=== PATIENT | female | born 1985 | race Caucasian/White ===

== ENCOUNTER → 2016-06-26 | Outpatient (REF) | payer BC ==
[2016-06-26 11:36] LABS: BASO % 0.6 % (0.0-1.0); EOS # 0.1 K/mm3 (0.0-0.50); EOS % 1.3 % (0.0-3.0); LARGE UNSTAINED CELL # 0.1 K/mm3 (0.0-0.4); LARGE UNSTAINED CELL % 1.4 % (0.0-4.0); LYMPH # 2.2 K/mm3 (1.5-4.5); LYMPH % 35.1 % (24.0-44.0); MEAN CORPUSCULAR HEMOGLOBIN 29.5 pg (27.0-33.0); MEAN CORPUSCULAR VOLUME 86.8 fl (80.0-96.0); MONO # 0.3 K/mm3 (0.0-0.8); MONO % 4.4 % (0.0-5.0); NEUTROPHILS # 3.6 K/mm3 (1.8-7.7); NEUTROPHILS % 57.3 % (36.0-66.0); PLATELET COUNT, AUTOMATED 215 k/mm3 (150-450); RED CELL DISTRIBUTION WIDTH 11.9 % (11.5-14.5); WHITE BLOOD COUNT 6.2 K/mm3 (4.0-10.0)
[2016-06-26 12:55] LABS: HBsAg Prenatal NEGATIVE (NEGATIVE)
[2016-06-26 13:35] LABS: CONTROL LINE INT CTR LINE PRESENT; HIV SCRN NEGATIVE (NEGATIVE); HIV SCRN1 NEGATIVE (NEGATIVE)
== END ==
LOC: M LABDRAW1 11:05
PROVIDERS: ATTEND Obstetrics & Gynecology
DX: Z34.81 Encounter for supervision of other normal pregnancy, first trimester (principal)

== ENCOUNTER → 2016-07-10 | Day surgery (SDC) | payer BC ==
[~2016-07-10] VITALS: Ht 170.2 cm; Wt 65.8 kg
[~2016-07-10] MED LIST: COLA100C PO; DOXY-278 PO; DOXYCYCLINE HYCLATE 100 MG in D5W MINI-BAG PLUS 100 ML IV ONE; GLYCOPYRROLATE INJ 0.2 MG/ML 2 ML VIAL As Ordered ONE; IBUP600T26 PO; KETOROLAC 60 MG/2 ML VIAL (J1885) As Ordered ONE; LIDOCAINE 2% INJ 100 MG/5 ML SDV (FOR ANES.) As Ordered ONE; LR 1,000 ML IV SCH; METHYLERGONOVINE MALEATE 0.2 MG/ML VIAL (J2210) As Ordered ONE; METOCLOPRAMIDE INJ 10MG/2ML VIAL (J2765) IV PRN; MIDAZOLAM INJ 2 MG/2 ML VIAL (J2250) As Ordered ONE; NO HOME MEDS; ONDANSETRON 4MG/2ML VIAL (J2405) As Ordered ONE; ONDANSETRON 4MG/2ML VIAL (J2405) IV PRN; OXYC1TAB23 PO; PERCOCET 5MG/325MG TAB PO PRN; PROPOFOL 200 MG/20 ML VIAL As Ordered ONE; SILVER NITRATE APPLICATOR As Ordered ONE; dexameTHASONE 4 MG/ML 1ML VIAL (J1100) As Ordered ONE; fentaNYL 100 MCG/2 ML INJECTION (J3010) As Ordered ONE; fentaNYL 100 MCG/2 ML INJECTION (J3010) IV PRN
[2016-07-10 09:07] LABS: MEAN CORPUSCULAR HEMOGLOBIN 30.2 pg (27.0-33.0); MEAN CORPUSCULAR HGB CONC 34.8 g/dl (32.0-36.5); MEAN CORPUSCULAR VOLUME 86.7 fl (80.0-96.0); RED CELL DISTRIBUTION WIDTH 11.9 % (11.5-14.5); WHITE BLOOD COUNT 5.8 K/mm3 (4.0-10.0)
[2016-07-10 11:58] VITALS: BP 109/63
--- NOTE | 2016-07-11 19:49 | RO ---
DATE OF PROCEDURE: 07/10/2016 PREOPERATIVE DIAGNOSES: Missed , intrauterine embryonic demise, first trimester miscarriage at approximately 7 to 8 weeks gestation. POSTPROCEDURE DIAGNOSES: Missed , intrauterine embryonic demise, first trimester miscarriage at approximately 7 to 8 weeks gestation. PROCEDURE PERFORMED: Suction dilatation and curettage. FINDINGS: Uterus sounded to approximately 9 to 10 cm. Intrauterine tissue was grossly consistent with products of conception. SURGEON: Yusuf Zimmerman DO PHYTOPATHOLOGY TEACHER: MENDEL BecerrilIII ANESTHESIA: General via LMA SPECIMENS TO PATHOLOGY: Intrauterine tissue/products of conception. ESTIMATED BLOOD LOSS: 200 mL. Fluids replaced, 700 mL of lactated Ringer's. DRAINS: In-and-out catheter 50 mL urine output. COMPLICATIONS: None. PREOPERATIVE ANTIBIOTIC: Doxycycline 100 mg intravenously times one. Uterotonic administered: Methergine 0.2 mg intramuscularly times one. INDICATION: The patient is a 30-year-old with a recent diagnosis of missed /intrauterine embryonic demise/ first trimester miscarriage approximately 7 to 8 weeks gestation. She was counseled on the available management options, to include expectant medical and surgical. She elected to proceed with surgical management via suction D&C. PROCEDURE: The patient was counseled/consented on the risks, benefits, indications and alternatives of the procedure. Informed consent was obtained. She was taken to the operating room with an IV running, and placed on the operating table in the dorsal supine position. General anesthesia was administered and airway secured without any difficulty. She was placed in the low lithotomy position. She was prepared and draped in the normal sterile fashion. A time-out was performed per protocol. The bladder was drained under sterile conditions with a sterile in-and-out catheter. A sterile speculum was placed with good visualization of the cervix. The anterior lip of the cervix was grasped with a single-toothed tenaculum and downward traction was applied. The uterus was sounded to 10 cm. The cervix was sequentially dilated with Tevin dilators up to #20, size 8 curved Vacurette was placed transcervical into the intrauterine cavity and suction was applied. Multiple passes of the Vacurette were performed until there was minimal blood and tissue return. After minimal blood and tissue return through the Vacurette, the Vacurette was removed. A sharp curette was placed transcervically into the intrauterine cavity and a sharp curettage was performed throughout the entire intrauterine cavity until gritty texture was noted throughout. Minimal tissue return and blood return was noted. An additional pass of the Vacurette was performed with minimal blood and tissue return. The decision was made to conclude the procedure. The single-tooth tenaculum was removed. The tenaculum sites were noted to be hemostatic. Minimal bleeding from the cervical os was noted. All sponge, instrument and needle counts were correct. She was transferred to the postanesthesia care unit in good and stable condition. She tolerated the entire procedure very well. ALISIA
== END | disposition home or self-care (01) ==
LOC: M SDC 08:22
PROVIDERS: ATTEND Obstetrics & Gynecology
DX: O02.1 Missed abortion (principal); G43.909 Migraine, unspecified, not intractable, without status migrainosus
CPT/HCPCS: 36415; 59820; 85027; 86850; 86900; 86901; 88305; J1100; J1885; J2210; J2250; J2405; J3010

== ENCOUNTER 2016-12-18 18:31 | Day surgery (SDC) | payer BC ==
[~2016-12-18] VITALS: Ht 170.2 cm; Wt 63.6 kg
--- NOTE | 2016-12-18 14:04 | REP ---
Clinical: Dating and viability. Technique: Transabdominal first trimester obstetrical ultrasound with color Doppler evaluation Findings: A single intrauterine is appreciated with crown-rump length of 42.3 mm corresponding to 11 weeks 1 day gestational age. No heart activity poor tracing is obtained and findings are suspicious for spontaneous . The placenta has a somewhat prominent and cystic appearance raising the possibility of partial molar . Correlation with HCG levels are recommended. Impression: 1. Intrauterine measuring at 11 weeks 1 day gestational age without heart tracing suggests spontaneous . 2. Prominent and somewhat cystic appearance to the placenta raises the possibility of partial molar . Correlation with HCG levels recommended. Signed by Franky Palmer MD 12/18/2016 01:56 P
[~2016-12-18 18:31] MED LIST changes: -COLA100C PO; +COLA100C5 PO; -DOXYCYCLINE HYCLATE 100 MG in D5W MINI-BAG PLUS 100 ML IV ONE; +DOXYCYCLINE HYCLATE 100 MG in D5W MINI-BAG PLUS 100 ML IV SCH; -GLYCOPYRROLATE INJ 0.2 MG/ML 2 ML VIAL As Ordered ONE; +IBUP-1022 PO; -IBUP600T26 PO; -KETOROLAC 60 MG/2 ML VIAL (J1885) As Ordered ONE; -LIDOCAINE 2% INJ 100 MG/5 ML SDV (FOR ANES.) As Ordered ONE; -LR 1,000 ML IV SCH; -METHYLERGONOVINE MALEATE 0.2 MG/ML VIAL (J2210) As Ordered ONE; -METOCLOPRAMIDE INJ 10MG/2ML VIAL (J2765) IV PRN; -MIDAZOLAM INJ 2 MG/2 ML VIAL (J2250) As Ordered ONE; -ONDANSETRON 4MG/2ML VIAL (J2405) As Ordered ONE; -ONDANSETRON 4MG/2ML VIAL (J2405) IV PRN; -PERCOCET 5MG/325MG TAB PO PRN; -PROPOFOL 200 MG/20 ML VIAL As Ordered ONE; -SILVER NITRATE APPLICATOR As Ordered ONE; -dexameTHASONE 4 MG/ML 1ML VIAL (J1100) As Ordered ONE; -fentaNYL 100 MCG/2 ML INJECTION (J3010) As Ordered ONE; -fentaNYL 100 MCG/2 ML INJECTION (J3010) IV PRN
[2016-12-18] MEDS ORDERED: LR 1,000 ML IV SCH ×3 (19:00→23:30)
[2016-12-18 19:23] LABS: MEAN CORPUSCULAR HEMOGLOBIN 30.6 pg (27.0-33.0); MEAN CORPUSCULAR HGB CONC 35.4 g/dl (32.0-36.5); MEAN CORPUSCULAR VOLUME 86.4 fl (80.0-96.0); RED CELL DISTRIBUTION WIDTH 12.4 % (11.5-14.5); WHITE BLOOD COUNT 11.2 K/mm3 (4.0-10.0)
[2016-12-18] MEDS ORDERED: KETOROLAC 60 MG/2 ML VIAL (J1885) As Ordered ONE (22:18)
[2016-12-18] MEDS ORDERED: LIDOCAINE 2% INJ 100 MG/5 ML SDV (FOR ANES.) As Ordered ONE (22:18)
[2016-12-18] MEDS ORDERED: dexameTHASONE 4 MG/ML 1ML VIAL (J1100) As Ordered ONE (22:18)
[2016-12-18] MEDS ORDERED: MIDAZOLAM INJ 2 MG/2 ML VIAL (J2250) As Ordered ONE (22:18)
[2016-12-18] MEDS ORDERED: PROPOFOL 200 MG/20 ML VIAL As Ordered ONE (22:18)
[2016-12-18] MEDS ORDERED: fentaNYL 100 MCG/2 ML INJECTION (J3010) As Ordered ONE (22:18)
[2016-12-18] MEDS ORDERED: ONDANSETRON 4MG/2ML VIAL (J2405) As Ordered ONE (22:18)
[2016-12-18] MEDS ORDERED: miSOPROStol 200 MCG TAB (S0191) As Ordered ONE (22:30)
[2016-12-18] MEDS ORDERED: METHYLERGONOVINE MALEATE 0.2 MG/ML VIAL (J2210) As Ordered ONE (22:45)
[2016-12-18] MEDS ORDERED: METOCLOPRAMIDE INJ 10MG/2ML VIAL (J2765) IV PRN (23:30)
[2016-12-18] MEDS ORDERED: MEPERIDINE INJ 25 MG/ML VIAL (J2175) IV PRN (23:30)
[2016-12-18] MEDS ORDERED: ACETAMINOPHEN 500 MG TAB PO PRN (23:30)
[2016-12-18] MEDS ORDERED: ONDANSETRON 4MG/2ML VIAL (J2405) IV PRN ×2 (23:30)
[2016-12-18] MEDS ORDERED: PERCOCET 5MG/325MG TAB PO PRN (23:30)
[2016-12-18] MEDS ORDERED: IBUPROFEN 800 MG TAB PO PRN (23:30)
[2016-12-18] MEDS ORDERED: fentaNYL 100 MCG/2 ML INJECTION (J3010) IV PRN (23:30)
[2016-12-18 23:40] VITALS: BP 112/72
[2016-12-19 00:10] VITALS: BP 108/55
[2016-12-19 01:10] VITALS: BP 120/72
--- NOTE | 2016-12-19 11:55 | RO ---
DATE OF PROCEDURE: 12/18/2016 PREPROCEDURE DIAGNOSIS: Missed 11 weeks gestation, possible molar . POSTPROCEDURE DIAGNOSIS: Missed 11 weeks gestation, possible molar . PROCEDURE: Dilation and curettage (D and C). SURGEON: Dr. Manuel Madrid WEED CUTTER: ANESTHESIA: General endotracheal. ESTIMATED BLOOD LOSS: 200 mL. FINDINGS: Moderate amount of products of conception. DESCRIPTION OF PROCEDURE: The patient was taken to the operating room where general anesthesia was induced. She was prepped and draped in a sterile fashion in the dorsal lithotomy position. The anterior lip of the cervix was grasped with a tenaculum. The cervix was dilated with tapered dilators. A #11 mm suction curette was placed through the internal os. The suction device was activated, the curette was gently rotated. Products of conception were noted coming through the suction tubing. Sharp curettage was performed. Moderate uterine atony was encountered. The patient was treated with Methergine 0.2 mg intramuscularly (IM). She also received Cytotec 800 mcg per rectum. Suction curettage was continued. Uterine tone improved, the bleeding stopped. The uterine cavity was deemed to be empty. The products of conception were examined on the table. All instruments were removed. Sponge and instrument counts were correct.
== END 2016-12-19 01:15 | disposition home or self-care (01) ==
LOC: M SDC 18:31 → M PED 23:45 → M SDC 12-19 01:15
PROVIDERS: ATTEND Specialist
DX: O02.1 Missed abortion (principal)
CPT/HCPCS: 36415; 59820; 76801; 85027; 86850; 86900; 86901; 88305; J1100; J1885; J2210; J2250; J2405; J3010

== ENCOUNTER → 2017-01-30 | Outpatient (CLI) | payer BC ==
[~2017-01-30] MED LIST changes: -DOXYCYCLINE HYCLATE 100 MG in D5W MINI-BAG PLUS 100 ML IV SCH
[2017-01-30 09:52] LABS: FREE T4 1.01 NG/DL (0.76-1.46)
[2017-02-01 11:11] LABS: LUTEINIZING HORMONE 7.6 mIU/mL
== END ==
LOC: M LAB 08:40
PROVIDERS: ATTEND Specialist
DX: N96 Recurrent pregnancy loss (principal)

== ENCOUNTER → 2017-08-03 | Outpatient (REF) | payer BC ==
[2017-08-05 00:07] LABS: Lyme Disease IgG/IgM Antibodie <0.91 ISR (0.00-0.90); Lyme Disease IgM Ab Quantitati <0.80 index (0.00-0.79)
== END ==
LOC: M LABDRAW1 11:22
DX: G51.0 Bell's palsy (principal)
CPT/HCPCS: 36415

== ENCOUNTER → 2017-08-04 | Outpatient (REF) | payer BC ==
[2017-08-04 10:09] LABS: BASO # 0.1 10^3/uL (0.0-0.2); BASO % 0.4 % (0.0-1.0); EOS % 0.1 % (0.0-3.0); HEMATOCRIT 37.5 % (36.0-47.0); HEMOGLOBIN 12.9 g/dl (12.0-16.0); IMMATURE GRANULOCYTE % 0.4 % (0-3.0); LYMPH # 3.4 10^3/uL (1.5-4.5); LYMPH % 25.1 % (24.0-44.0); MEAN CORPUSCULAR HEMOGLOBIN 29.9 pg (27.0-33.0); MEAN CORPUSCULAR HGB CONC 34.4 g/dl (32.0-36.5); MEAN CORPUSCULAR VOLUME 86.8 fl (80.0-96.0); MONO # 0.6 10^3/uL (0.0-0.8); MONO % 4.3 % (0.0-5.0); NEUTROPHILS # 9.3 10^3/uL (1.8-7.7); NEUTROPHILS % 69.7 % (36.0-66.0); PLATELET COUNT, AUTOMATED 291 10^3/uL (150-450); RED BLOOD COUNT 4.32 10^6/uL (4.00-5.40); RED CELL DISTRIBUTION WIDTH 12.2 % (11.5-14.5); WHITE BLOOD COUNT 13.4 10^3/uL (4.0-10.0)
[2017-08-04 11:08] LABS: RUBELLA IgG QUALITATIVE IMMUNE (IMMUNE)
[2017-08-04 11:10] LABS: HBsAg Prenatal NEGATIVE (NEGATIVE)
[2017-08-04 11:35] LABS: HEPATITIS C VIRUS ABY INDEX < 0.0 INDEX (<0.8)
[2017-08-04 11:37] LABS: HIV 1&2 SCREEN CENTAUR NEGATIVE (NEGATIVE)
[2017-08-04 11:43] LABS: CHLAMYDIA DNA AMPLIFICATION NEGATIVE (NEGATIVE); GC DNA AMPLIFICATION NEGATIVE (NEGATIVE)
== END ==
LOC: M LABDRAW1 09:54
DX: Z3A.01 Less than 8 weeks gestation of pregnancy (principal); Z34.81 Encounter for supervision of other normal pregnancy, first trimester

== ENCOUNTER → 2017-10-29 | Outpatient (CLI) | payer BC | LOC: M RAD 06:30 | DX: Z34.82 Encounter for supervision of other normal pregnancy, second trimester (principal); Z3A.20 20 weeks gestation of pregnancy | CPT/HCPCS: 76811 ==

== ENCOUNTER → 2017-12-10 | Outpatient (CLI) | payer BC ==
[2017-12-10 09:20] LABS: HEMATOCRIT 36.5 % (36.0-47.0); HEMOGLOBIN 12.7 g/dl (12.0-15.5); MEAN CORPUSCULAR HEMOGLOBIN 30.7 pg (27.0-33.0); MEAN CORPUSCULAR HGB CONC 34.8 g/dl (32.0-36.5); MEAN CORPUSCULAR VOLUME 88.2 fl (80.0-96.0); PLATELET COUNT, AUTOMATED 192 10^3/uL (150-450); RED BLOOD COUNT 4.14 10^6/uL (4.00-5.40); RED CELL DISTRIBUTION WIDTH 12.8 % (11.5-14.5)
[2017-12-13 09:32] LABS: WHITE BLOOD COUNT 7.8 10^3/uL (4.0-10.0)
[2017-12-13 09:32] LABS: GLUCOSE CHALLENGE TEST 1 HOUR 65 MG/DL (LESS THAN 140)
== END ==
LOC: M LAB 07:55
DX: Z34.82 Encounter for supervision of other normal pregnancy, second trimester (principal); Z3A.00 Weeks of gestation of pregnancy not specified
CPT/HCPCS: 82950

== ENCOUNTER → 2017-12-24 | Outpatient (CLI) | payer BC | LOC: M RAD 07:07 | DX: Z34.82 Encounter for supervision of other normal pregnancy, second trimester (principal); Z36.89 Encounter for other specified antenatal screening; Z3A.28 28 weeks gestation of pregnancy | CPT/HCPCS: 76816 ==

== ENCOUNTER 2018-03-18 13:43 | Inpatient (IN) | payer BC ==
[2018-03-18 15:06] LABS: HEMATOCRIT 36.7 % (36.0-47.0); HEMOGLOBIN 13.1 g/dl (12.0-15.5); MEAN CORPUSCULAR HEMOGLOBIN 30.5 pg (27.0-33.0); MEAN CORPUSCULAR HGB CONC 35.7 g/dl (32.0-36.5); MEAN CORPUSCULAR VOLUME 85.3 fl (80.0-96.0); PLATELET COUNT, AUTOMATED 148 10^3/uL (150-450); RED CELL DISTRIBUTION WIDTH 12.6 % (11.5-14.5); WHITE BLOOD COUNT 9.5 10^3/uL (4.0-10.0)
[2018-03-18] MEDS: miSOPROStol 50 MCG 1/2 TAB (S0191) PO ×3 (15:20→23:53)
[2018-03-19] MEDS: LR 1,000 ML IV ×2 (08:37→15:26)
[2018-03-19] MEDS: OXYTOCIN DRIP 30 UNITS in APPROPRIATE DILUENT 1 EA IV (08:43)
[2018-03-19] MEDS: PENICILLIN G POTASSIUM IV 5 MU in D5W MINI-BAG PLUS 100 ML IV (09:11)
[2018-03-19] MEDS: PENICILLIN G POTASSIUM IV 2.5 MU in APPROPRIATE DILUENT 1 EA IV ×3 (13:15→20:57)
[2018-03-19] MEDS ORDERED: FENTANYL 2MCG/ML ROPIVACAINE 0.2% IN 0.9% NACL 200ML IVBAG As Ordered (16:41)
[2018-03-19] MEDS: FENTANYL/ROPIVACAINE/NACL BAG 200 ML EPIDURAL (17:34)
[2018-03-19] MEDS ORDERED: diphenhydrAMINE INJ 50MG/ML VIAL (J1200) IV (18:00)
[2018-03-19] MEDS ORDERED: EPIDURAL/PCA KEYS XX (18:00)
[2018-03-19] MEDS ORDERED: REFRIGERATOR IV KEYS XX (18:00)
[2018-03-19] MEDS ORDERED: NALOXONE INJ 0.4 MG/1 ML VIAL (J2310) IV (18:00)
[2018-03-19] MEDS ORDERED: ONDANSETRON 4MG/2ML VIAL (J2405) IV (18:00)
[2018-03-19] MEDS ORDERED: ePHEDrine SULFATE 25 MG/5 ML(5MG/ML) SYRINGE IV (18:00)
[2018-03-19] MEDS ORDERED: EPIDURAL COMMENT XX (18:00)
[2018-03-19] MEDS: LACTATED RINGER'S 1000 ML IV (18:16)
[2018-03-20] MEDS: PENICILLIN G POTASSIUM IV 2.5 MU in APPROPRIATE DILUENT 1 EA IV (01:35)
[2018-03-20] MEDS: OXYTOCIN DRIP 30 UNITS in APPROPRIATE DILUENT 1 EA IV (03:15)
[2018-03-20] MEDS: LIDOCAINE 1% MDV 20ML VIAL INFIL (03:30)
[2018-03-20] MEDS ORDERED: METHYLERGONOVINE MALEATE 0.2 MG TAB PO (04:00)
[2018-03-20] MEDS ORDERED: MEASLES,MUMPS,RUBELLA VACCINE INJ (MMR-II) (90707) SC (04:00)
[2018-03-20] MEDS ORDERED: ONDANSETRON 4MG/2ML VIAL (J2405) IV (04:00)
[2018-03-20] MEDS ORDERED: DIBUCAINE 1% OINTMENT 30GM TOP (04:00)
[2018-03-20] MEDS ORDERED: RHOGAM 300 MCG (1500 IU) INJ (J2790) IM (04:00)
[2018-03-20] MEDS ORDERED: ACETAMINOPHEN 500 MG TAB PO (04:00)
[2018-03-20] MEDS ORDERED: OXYTOCIN DRIP 30 UNITS in APPROPRIATE DILUENT 1 EA IV (04:45)
[2018-03-20] MEDS: PRENATAL VITAMINS CHEWABLE TABLET PO (09:16)
[2018-03-20] MEDS: IBUPROFEN 800 MG TAB PO ×2 (09:16→17:15)
[2018-03-21] MEDS: PRENATAL VITAMINS CHEWABLE TABLET PO (08:41)
[2018-03-21] MEDS: IBUPROFEN 800 MG TAB PO ×2 (08:46→17:14)
[2018-03-21] MEDS: DOCUSATE SODIUM 100 MG CAP PO (19:51)
[2018-03-22] MEDS: PRENATAL VITAMINS CHEWABLE TABLET PO (07:50)
[2018-03-22] MEDS: IBUPROFEN 800 MG TAB PO (07:52)
== END 2018-03-22 17:25 | disposition home or self-care (01) | DRG 560 ==
LOC: M LDI 13:43 → M OBS 03-20 06:25
PROVIDERS: Specialist
PROC: 3E0DXGC Introduction of Other Therapeutic Substance into Mouth and Pharynx, External Approach (ICD-10-PCS; 2018-03-18)
PROC: 10E0XZZ Delivery of Products of Conception, External Approach (ICD-10-PCS; principal; 2018-03-20)
PROC: 0HQ9XZZ Repair Perineum Skin, External Approach (ICD-10-PCS; 2018-03-20)
DX: O48.0 Post-term pregnancy (principal); Z37.0 Single live birth; Z3A.40 40 weeks gestation of pregnancy; O99.820 Streptococcus B carrier state complicating pregnancy; O70.0 First degree perineal laceration during delivery

== ENCOUNTER 2018-10-26 08:09 | Emergency (ER) | payer BC ==
[~2018-10-26] VITALS: Ht 170.2 cm; Wt 60.7 kg
[~2018-10-26 08:09] MED LIST changes: -DOXY-278 PO; +DOXY-350 PO; +IBUP-1114 PO; +MAPA500T2 PO; +PRENTAB9 PO; +PROBCAP4 PO
[2018-10-26] MEDS ORDERED: PROBCAP14 PO (08:19)
[2018-10-26] MEDS ORDERED: DEBL1TAB PO (08:19)
[2018-10-26] MEDS ORDERED: NS 1,000 ML IV ONE (08:45)
[2018-10-26 08:56] LABS: BASO # 0.1 10^3/uL (0.0-0.2); BASO % 0.7 % (0.0-1.0); EOS # 0.1 10^3/uL (0.0-0.50); HEMATOCRIT 41.9 % (36.0-47.0); HEMOGLOBIN 14.1 g/dl (12.0-15.5); LYMPH # 2.7 10^3/uL (1.5-4.5); LYMPH % 37.5 % (24.0-44.0); MEAN CORPUSCULAR HEMOGLOBIN 30.2 pg (27.0-33.0); MEAN CORPUSCULAR HGB CONC 33.7 g/dl (32.0-36.5); MEAN CORPUSCULAR VOLUME 89.7 fl (80.0-96.0); MONO # 0.4 10^3/uL (0.0-0.8); MONO % 6.1 % (0.0-5.0); NEUTROPHILS # 3.9 10^3/uL (1.8-7.7); NEUTROPHILS % 54.1 % (36.0-66.0); PLATELET COUNT, AUTOMATED 219 10^3/uL (150-450); RED BLOOD COUNT 4.67 10^6/uL (4.00-5.40); WHITE BLOOD COUNT 7.2 10^3/uL (4.0-10.0)
[2018-10-26 09:26] LABS: ALT/SGPT 27 U/L (12-78); BLOOD UREA NITROGEN 17 MG/DL (7-18); CALCIUM LEVEL 8.5 MG/DL (8.5-10.1); CARBON DIOXIDE LEVEL 29 MEQ/L (21-32); CHLORIDE LEVEL 105 MEQ/L (98-107); CREATININE FOR GFR 0.76 MG/DL (0.55-1.30); GLOMERULAR FILTRATION RATE > 60.0 (>60); GLUCOSE, FASTING 101 MG/DL (70-100); POTASSIUM SERUM 3.9 MEQ/L (3.5-5.1); SODIUM LEVEL 139 MEQ/L (136-145)
[2018-10-26 09:27] LABS: ALBUMIN 4.2 GM/DL (3.2-5.2); AMYLASE 67 U/L (25-115); BILIRUBIN,DIRECT 0.2 MG/DL (0.0-0.2); BILIRUBIN,TOTAL 0.7 MG/DL (0.2-1.0); LIPASE 152 U/L (73-393)
[2018-10-26] MEDS ORDERED: ISOVUE-370 76% 100ML VIAL (Q9967) As Ordered ONE (09:39)
[2018-10-26 11:36] VITALS: BP 111/69
--- NOTE | 2018-10-26 11:43 | REP ---
CT ABDOMEN AND PELVIS WITH AND WITHOUT IV CONTRAST: TECHNIQUE: Axial noncontrast images through the abdomen followed by contrast-enhanced images through the abdomen and pelvis using 100 mL Isovue 370 intravenous contrast material, with coronal and sagittal reformations. Visualized lung bases are clear. The liver, spleen, adrenals, pancreas and kidneys are unremarkable. No adrenal or ureteral calculi are seen. No definite gallstones are seen. There is no evidence of biliary dilatation. There is no abdominal aortic aneurysm. There is no adenopathy. There is no free air or free fluid. No definite bowel wall thickening is seen. I cannot identify the appendix but I do not see definite evidence of appendicitis. Urinary bladder is distended with no definite abnormality. There is a mass involving the right ovary which contains fluid density but also a foci of fat and there is an oval calcification in the medial aspect of the mass measuring approximately 13 x 6 mm. This is consistent with a right ovarian dermoid. The left ovary appears unremarkable. IMPRESSION: I cannot identify the appendix. There is no definite evidence of appendicitis. Appendix could be further evaluated possibly with ultrasound, or a CT with good oral preparation as this patient lacks significant intraperitoneal fat and there is resultant crowding of the bowel structures. No renal, ureteral, or bladder calculus. No hydroureteronephrosis. Large right ovarian dermoid is noted, measuring 6.0 x 7.7 x 5.0 cm. No free air or free fluid. Electronically Signed by Waqas Baer MD 10/26/2018 03:39 P
[2018-10-31] MEDS ORDERED: VITA500T PO (12:36)
== END 2018-10-26 11:39 | disposition home or self-care (01) ==
LOC: M ED 08:09
DX: D27.0 Benign neoplasm of right ovary (principal)
CPT/HCPCS: 74178; 80048; 80076; 81001; 82150; 83690; 84702; 85025; 96360; 96361; 99284; Q9967

== ENCOUNTER → 2018-10-28 | Outpatient (REF) | payer BC ==
[~2018-10-28] MED LIST changes: +DEBL1TAB PO; +IBUP1TAB7 PO; +PERCOCET PO; +PROBCAP14 PO; +VITA500T PO
== END ==
LOC: M LABDRAW1 17:37
PROVIDERS: ATTEND Obstetrics & Gynecology
DX: N83.291 Other ovarian cyst, right side (principal)

== ENCOUNTER → 2018-11-01 | Outpatient (CLI) | payer BC ==
--- NOTE | 2018-11-01 08:08 | REP ---
Clinical: Ovarian cyst . Technique: Transabdominal pelvic ultrasound followed by transvaginal examination for better evaluation of the endometrium and adnexa with color Doppler evaluation of the ovaries. Findings: Bladder is unremarkable and measures 9.4 x 4.7 x 4.9 cm . Normal anteverted uterus measures 6.2 x 3.0 x 4.8 cm . The endometrial complex measures 2.6 mm thickness. No discrete uterine or endometrial abnormalities are appreciated. Bilateral ovaries are normal in vascularity without evidence for torsion. Right ovary measures 7.8 x 5.4 x 5.9 cm and includes a 7.6 x 5.4 x 5.2 cm dermoid/teratoma ; R I = 0.55. Left ovary measures 2.5 x 1.8 x 2.4 cm ; R I = 0.59 . No pelvic fluid . Impression: 1. Normal uterus and left ovary. 2. 7.6 cm right ovarian dermoid cyst. Electronically Signed by Franky Palmer MD 11/01/2018 08:00 A
== END ==
LOC: M RAD 07:00
PROVIDERS: ATTEND Obstetrics & Gynecology
DX: N83.291 Other ovarian cyst, right side (principal)

== ENCOUNTER 2018-11-02 10:01 | Day surgery (SDC) | payer BC ==
[~2018-11-02] VITALS: Ht 170.2 cm; Wt 59.0 kg
[~2018-11-02 10:01] MED LIST changes: +ACETAMINOPHEN 1000MG 100ML IV BTL (OFIRMEV) (J0131 PER 10MG) As Ordered ONE; -IBUP1TAB7 PO; +KETOROLAC 60 MG/2 ML VIAL (J1885) As Ordered ONE; +LIDOCAINE 2% INJ 100 MG/5 ML SDV (FOR ANES.) As Ordered ONE; +LR 1,000 ML IV ONE; +METOCLOPRAMIDE INJ 10MG/2ML VIAL (J2765) As Ordered ONE; +MIDAZOLAM INJ 2 MG/2 ML VIAL (J2250) As Ordered ONE; +ONDANSETRON 4MG/2ML VIAL (J2405) As Ordered ONE; -PERCOCET PO; +PROPOFOL 200 MG/20 ML VIAL As Ordered ONE; +ROCURONIUM BROMIDE 50 MG/5 ML VIAL As Ordered ONE; +SUGAMMADEX SODIUM 500 MG/5 ML VIAL (BRIDION) As Ordered ONE; +dexameTHASONE 4 MG/ML 1ML VIAL (J1100) As Ordered ONE; +fentaNYL 100 MCG/2 ML INJECTION (J3010) As Ordered ONE
[2018-11-02] MEDS ORDERED: PROPOFOL 200 MG/20 ML VIAL As Ordered ONE (10:07)
[2018-11-02] MEDS ORDERED: BUPIVACAINE HCL 0.25% 30 ML VIAL As Ordered ONE (10:12)
[2018-11-02] MEDS ORDERED: SILVER NITRATE APPLICATOR As Ordered ONE (10:14)
[2018-11-02 10:19] LABS: HEMATOCRIT 40.9 % (36.0-47.0); HEMOGLOBIN 13.7 g/dl (12.0-15.5); MEAN CORPUSCULAR HEMOGLOBIN 30.4 pg (27.0-33.0); MEAN CORPUSCULAR HGB CONC 33.5 g/dl (32.0-36.5); MEAN CORPUSCULAR VOLUME 90.9 fl (80.0-96.0); PLATELET COUNT, AUTOMATED 211 10^3/uL (150-450); WHITE BLOOD COUNT 5.9 10^3/uL (4.0-10.0)
[2018-11-02 10:47] LABS: HCG, SERUM QUALITATIVE NEGATIVE (NEGATIVE)
[2018-11-02] MEDS ORDERED: fentaNYL 100 MCG/2 ML INJECTION (J3010) As Ordered ONE (12:23)
[2018-11-02] MEDS ORDERED: IBUP1TAB7 PO (13:12)
[2018-11-02] MEDS ORDERED: PERCOCET PO (13:13)
[2018-11-02] MEDS ORDERED: COLA100C5 PO (13:15)
[2018-11-02] MEDS ORDERED: METOCLOPRAMIDE INJ 10MG/2ML VIAL (J2765) IV PRN (13:30)
[2018-11-02] MEDS ORDERED: fentaNYL 100 MCG/2 ML INJECTION (J3010) IV PRN (13:30)
[2018-11-02] MEDS: PERCOCET 5MG/325MG TAB PO PRN ×2 (13:30→14:04)
[2018-11-02] MEDS ORDERED: LR 1,000 ML IV SCH ×2 (13:30)
[2018-11-02] MEDS ORDERED: ONDANSETRON 4MG/2ML VIAL (J2405) IV PRN (13:30)
--- NOTE | 2018-11-02 15:13 | RO ---
DATE OF PROCEDURE: 11/02/2018 PREOPERATIVE DIAGNOSIS: Symptomatic right ovarian cyst (suspect mature cystic teratoma). POSTOPERATIVE DIAGNOSIS: Symptomatic right ovarian cyst (grossly consistent with right mature cystic teratoma). PROCEDURE: Laparoscopic right salpingo-oophorectomy. SURGEON: Yusuf Zimmerman DO RAZOR GRINDER: Manuel Madrid MD (essential role in tissue manipulation and assistance with the excision of the right adnexal mass). ANESTHESIA TYPE: General endotracheal. SPECIMENS SENT TO PATHOLOGY: Right fallopian tube and ovary with the cyst. ESTIMATED BLOOD LOSS: 5 mL. FLUIDS REPLACED: 1500 mL lactated Ringer's. DRAINS: Courtney catheter. URINE OUTPUT: 400 mL. COMPLICATIONS: None. PREOPERATIVE ANTIBIOTICS: None indicated. INTRAOPERATIVE FINDINGS: Right adnexal/ovarian mass (7-8 cm) grossly consistent with mature cystic teratoma. Normal uterus size, shape and contour. Normal left adnexa and ovary. No adhesive disease within the pelvis. INDICATION: Patient is a 32-year-old, (G) 3, para (P) 1-0-2-1. She was recently diagnosed with a right adnexal mass. Imaging findings consistent with mature cystic teratoma. The patient elected to proceed with surgical management. DESCRIPTION OF PROCEDURE: The patient was counseled on the risks, benefits, indications, and alternatives of the procedure. Informed consent was obtained. She was taken to the operating room with an IV running and placed on the operating table in the dorsal supine position. General anesthesia was administered and the airway was secured without any difficulty. She was placed in the low lithotomy position. She was prepared and draped in a normal sterile fashion. A time-out was performed per protocol. Attention was first turned to the pelvis. A Courtney catheter was placed under sterile conditions. A sterile speculum was placed for good visualization of the cervix. The anterior lip of the cervix was grasped with a single-tooth tenaculum and downward traction was applied. The Tevin dilators were used to sequentially dilate the cervix. The uterus sounded to 7 cm. A ZUMI uterine manipulator was placed without any difficulty. The single-tooth tenaculum was removed. The speculum was removed. A sterile glove switch was performed. Attention was turned to the abdomen. 0.25% Marcaine was injected to the umbilicus. A 10 mm umbilical incision was made with the #11 blade. Through this incision a Veress needle was placed into the intraperitoneal cavity. Intraperitoneal placement was confirmed with ease of flow of normal saline, negative return on aspiration and a positive drop test. The opening pressure was 2 mmHg. The abdomen was insufflated with 2 liters of gas. The Veress needle was removed. The size of 11 mm Xcel laparoscopic trocar was placed into the intraperitoneal cavity without any difficulty. No incidental bleeding or injury was noted. The patient was placed in steep Trendelenburg. Two lower abdominal incisions were made, via 5 mm incisions on the right and left lower abdomen. Through these incisions Xcel laparoscopic trocars were placed under direct laparoscopic visualization without any difficulty. Attention was turned to the right adnexal mass. Significant torsion was noted. The mass was twisted upon the infundibulopelvic (IP) ligament three times. The mass was untwisted. The IP ligament was identified. The ureter was well away from the IP ligament. The 5 mm LigaSure device was used to clamp, coagulate and transect the IP ligament. The underlying mesosalpinx/broad ligament was sequentially clamped, coagulated to the level of the utero-ovarian ligament. The utero-ovarian ligament was clamped, coagulated and transected thus amputating both the right fallopian tube and the right ovary with the adnexal mass. This specimen was placed in the anterior cul-de-sac. The specimen was removed using the EndoCatch bag without any difficulty. After removal of the specimen from the abdomen, laparoscopic inspection revealed excellent hemostasis throughout the pelvis. The specimens were sent to pathology for permanent section. The gas was released from the abdomen. The trocars were removed. The skin incisions were closed with #4-0 Monocryl and reinforced with Dermabond. Attention was turned to the vagina. The ZUMI uterine manipulator was removed. The tenaculum sites were noted be hemostatic. Sponge, lap, needle, and instrument counts were correct and all instruments were removed from the vagina per protocol. The patient tolerated the entire procedure very well. She was transferred to the postanesthesia care unit (PACU) in good and stable condition. [facility]ERN[facility] HOSPITALRandal
[2018-11-02 15:43] VITALS: BP 114/61
== END 2018-11-02 15:51 | disposition home or self-care (01) ==
LOC: M SDC 10:01
PROVIDERS: ATTEND Obstetrics & Gynecology
DX: D27.0 Benign neoplasm of right ovary (principal)
CPT/HCPCS: 36415; 58661; 84703; 85027; 86850; 86900; 86901; 88305; J0131; J1100; J1885; J2250; J2405; J2765; J3010

== ENCOUNTER → 2019-03-23 | Outpatient (REF) | payer BC ==
[~2019-03-23] MED LIST changes: -ACETAMINOPHEN 1000MG 100ML IV BTL (OFIRMEV) (J0131 PER 10MG) As Ordered ONE; +IBUP1TAB7 PO; -KETOROLAC 60 MG/2 ML VIAL (J1885) As Ordered ONE; -LIDOCAINE 2% INJ 100 MG/5 ML SDV (FOR ANES.) As Ordered ONE; -LR 1,000 ML IV ONE; -METOCLOPRAMIDE INJ 10MG/2ML VIAL (J2765) As Ordered ONE; -MIDAZOLAM INJ 2 MG/2 ML VIAL (J2250) As Ordered ONE; -ONDANSETRON 4MG/2ML VIAL (J2405) As Ordered ONE; +PERCOCET PO; -PROPOFOL 200 MG/20 ML VIAL As Ordered ONE; -ROCURONIUM BROMIDE 50 MG/5 ML VIAL As Ordered ONE; -SUGAMMADEX SODIUM 500 MG/5 ML VIAL (BRIDION) As Ordered ONE; -dexameTHASONE 4 MG/ML 1ML VIAL (J1100) As Ordered ONE; -fentaNYL 100 MCG/2 ML INJECTION (J3010) As Ordered ONE
[2019-03-29 08:20] LABS: HPV LOW VOL RFLX Negative (Negative)
== END ==
LOC: M LAB REF 13:24
PROVIDERS: ATTEND Advanced Practice Midwife
DX: Z12.4 Encounter for screening for malignant neoplasm of cervix (principal)

== ENCOUNTER → 2019-08-28 | Outpatient (REF) | payer BC | LOC: M PLALAB 07:57 | PROVIDERS: ATTEND Advanced Practice Midwife | DX: Z32.01 Encounter for pregnancy test, result positive (principal) ==

== ENCOUNTER → 2019-08-30 | Outpatient (REF) | payer BC | LOC: M PLALAB 10:46 | PROVIDERS: ATTEND Obstetrics & Gynecology | DX: Z32.01 Encounter for pregnancy test, result positive (principal) ==

== ENCOUNTER → 2019-09-04 | Outpatient (REF) | payer BC | LOC: M SFHCCLAY 14:06 | PROVIDERS: ATTEND Nurse Practitioner Family | DX: O03.9 Complete or unspecified spontaneous abortion without complication (principal) ==

== ENCOUNTER → 2019-11-09 | Outpatient (REF) | payer BC ==
[~2019-11-09] MED LIST changes: +VITA-243 PO; -VITA500T PO
[2019-11-09 10:35] LABS: HEMATOCRIT 39.2 % (36.0-47.0); HEMOGLOBIN 13.3 g/dl (12.0-15.5); MEAN CORPUSCULAR HEMOGLOBIN 29.9 pg (27.0-33.0); MEAN CORPUSCULAR HGB CONC 33.9 g/dl (32.0-36.5); MEAN CORPUSCULAR VOLUME 88.1 fl (80.0-96.0); PLATELET COUNT, AUTOMATED 208 10^3/uL (150-450); RED BLOOD COUNT 4.45 10^6/uL (4.00-5.40)
[2019-11-09 12:16] LABS: CHLAMYDIA DNA AMPLIFICATION NEGATIVE (NEGATIVE); GC DNA AMPLIFICATION NEGATIVE (NEGATIVE)
[2019-11-10 11:08] LABS: HIV 1&2 SCREEN CENTAUR NEGATIVE (NEGATIVE)
== END ==
LOC: M PLALAB 08:53
PROVIDERS: ATTEND Advanced Practice Midwife
DX: O09.521 Supervision of elderly multigravida, first trimester (principal)

== ENCOUNTER → 2020-01-11 | Outpatient (CLI) | payer BC ==
--- NOTE | 2020-01-11 09:15 | REP ---
Clinical: Anatomical evaluation. Comparison: None . Findings: Examination demonstrates a single live intrauterine in transverse (head to maternal left) presentation. motion is identified by technologist. Placenta is noted anterior and grade zero without evidence for placenta previa or abruption. Amniotic fluid volume is normal. Cervix measures 3.6 cm in length and appears closed. No evidence for nuchal cord. Gestational age by LMP 19 weeks 1 day with SANTY 06/05/2020 . Gestational age by current measurements 19 weeks 2 days with SANTY 06/04/2020 . FHR equals 134 beats per minute. BPD 4.5 cm 19 weeks 4 days HC 17.0 cm 19 weeks 5 days AC 13.6 cm 19 weeks 1 day FL 3.1 cm 19 weeks 4 days HL 3.0 cm 19 weeks 5 days HC/AC ratio 1.25 Estimated weight 288 grams ( 56 percentile). Anatomical assessment demonstrates normal structures including cranium, choroid plexus, cavum, cerebellum/posterior fossa, facial features, lungs, four-chamber heart, stomach, cord insertion/three-vessel cord, kidneys/bladder, spine, and extremities. Limited evaluation of the left cardiac ventricular outflow tract and diaphragm due to positioning. Impression: Single live intrauterine in transverse lie demonstrating appropriate interval growth. Anatomical limitations as noted above. No gross abnormalities are identified. Electronically Signed by Franky Palmer MD 01/11/2020 09:07 A
== END ==
LOC: M WHC 08:01
PROVIDERS: ATTEND Advanced Practice Midwife
DX: Z34.82 Encounter for supervision of other normal pregnancy, second trimester (principal); Z3A.19 19 weeks gestation of pregnancy

== ENCOUNTER → 2020-02-15 | Outpatient (CLI) | payer BC ==
--- NOTE | 2020-02-22 16:17 | REP ---
FOLLOW-UP OBSTETRICAL ULTRASOUND CLINICAL: Anatomical follow-up evaluation. TECHNIQUE: Transabdominal obstetrical ultrasound with color Doppler evaluation. COMPARISON: 01/11/2020. FINDINGS: Ultrasound examination demonstrates a single live intrauterine in transverse lie with head to maternal left. motion was identified by the technologist. Cervix measures 4.6 cm in length and appears closed. Amniotic fluid volume is normal. Placenta identified anteriorly, grade 0, and without placenta previa or abruption. Placenta measures 3 cm from the closed internal os. heart rate equals 135 beats per minute. Gestational age by current biometrical measurements 24 weeks 5 days. Estimated weight 689 grams (52nd percentile). Anatomical assessment demonstrates normal diaphragm, four chamber heart, and cardiac ventricular outflow tracts. IMPRESSION: 1. Single live intrauterine pregnancies in transverse lie demonstrating appropriate interval growth. 2. In conjunction with prior examination, anatomical assessment is complete and normal. No gross abnormalities are identified. MTDD
== END ==
LOC: M WHC 07:54
PROVIDERS: ATTEND Advanced Practice Midwife
DX: Z34.82 Encounter for supervision of other normal pregnancy, second trimester (principal)

== ENCOUNTER → 2020-03-08 | Outpatient (CLI) | payer BC ==
[2020-03-08 13:34] LABS: BASO % 0.2 % (0.0-1.0); EOS % 0.3 % (0.0-3.0); HEMATOCRIT 40.1 % (36.0-47.0); HEMOGLOBIN 13.4 g/dl (12.0-15.5); LYMPH % 22.2 % (24.0-44.0); MEAN CORPUSCULAR HEMOGLOBIN 30.7 pg (27.0-33.0); MEAN CORPUSCULAR HGB CONC 33.4 g/dl (32.0-36.5); MEAN CORPUSCULAR VOLUME 91.8 fl (80.0-96.0); MONO # 0.5 10^3/uL (0.0-0.8); NEUTROPHILS # 6.4 10^3/uL (1.5-8.5); PLATELET COUNT, AUTOMATED 189 10^3/uL (150-450); RED BLOOD COUNT 4.37 10^6/uL (4.00-5.40); WHITE BLOOD COUNT 9.1 10^3/uL (4.0-10.0)
== END ==
LOC: M PLALAB 08:26
PROVIDERS: ATTEND Advanced Practice Midwife
DX: Z34.82 Encounter for supervision of other normal pregnancy, second trimester (principal); Z3A.00 Weeks of gestation of pregnancy not specified

== ENCOUNTER → 2020-05-10 | Outpatient (REF) | payer BC | LOC: M SFHCWAGY 16:54 | PROVIDERS: ATTEND Advanced Practice Midwife | DX: O09.529 Supervision of elderly multigravida, unspecified trimester (principal); Z3A.00 Weeks of gestation of pregnancy not specified ==

== ENCOUNTER 2020-06-05 10:06 | Inpatient (IN) | payer BC ==
[~2020-06-05] VITALS: Ht 170.2 cm; Wt 77.7 kg
[2020-06-05 10:34] VITALS: BP 104/73
[2020-06-05] MEDS: miSOPROStol 50 MCG 1/2 TAB (S0191) PO SCH ×3 (11:30→19:36)
--- NOTE | 2020-06-05 11:31 | HPE ---
HISTORY AND PHYSICAL DATE OF ADMISSION: 06/05/2020 HISTORY OF PRESENT ILLNESS: Sejal is a 34-year-old 5 para 1-0-3-1 at 40 weeks gestation, EDC of 06/05/20 by first trimester ultrasound, presents to Labor and Delivery today for elective induction due to advanced maternal age for consult with Dr. Manuel Madrid. She denies any regular painful contractions, vaginal bleeding or leakage of fluid. The fetus has been active. Her care was initiated at [facility] in the first trimester. course complicated by advanced maternal age. OBSTETRIC HISTORY: June 2016: Spontaneous miscarriage, D and C; November 2016 spontaneous miscarriage, D and C; February 2018, 40 weeks and 4/7 days, 8 pound male, spontaneous vaginal delivery following induction of labor; August 2019 spontaneous miscarriage. OBSTETRIC LABS: A positive, antibody screen negative, syphilis negative, gonorrhea and chlamydia and negative. Hepatitis B surface antigen negative. Hepatitis C antibody negative. HIV negative. Rubella immune. Gestational diabetic screening normal at 63. Urine culture: No growth. Group B Strep negative. PAST MEDICAL HISTORY: Childhood varicella. PAST SURGICAL HISTORY: D and C's x2, wisdom tooth extraction, dermoid cyst on the right ovary and bilateral Lasix surgery. FAMILY HISTORY: Heart disease and breast cancer. SOCIAL HISTORY: The patient is . She is a nonsmoker. She denies alcohol and drug use. Denies a history of sexually transmitted infections. Denies history of abuse, physical, sexual and emotional. She is employed as a dental hygienist. MEDICATIONS: 1. vitamin. ALLERGIES: No known drug allergies. OBJECTIVE: VITAL SIGNS: Temperature 96, pulse 105, respirations 18, BP 104/73. GENERAL: She is alert and oriented x3. heart rate is 140 with moderate variability, positive accelerations, negative decelerations. There is no pattern of regular contractions. ABDOMEN: Her abdomen is gravid, cephalic presentation. Estimated weight is 8 pounds. GENITALIA: Sterile vaginal exam: 2 cm dilated, 50% effaced, -3 station, posterior, moderate texture, no show with the exam. ASSESSMENT: Intrauterine at 40 weeks, heart Category 1, advanced maternal age. PLAN: Admit patient to Labor and Delivery, routine labs, out of bed ad eryn, regular diet, at this time saline lock for IV access. I plan to start Misoprostol 50 mcg p.o. q. 4 hours for cervical ripening, may consider Cook catheter Courtney, IV Pitocin and AROM for labor induction augmentation. The risks, benefits and alternatives have been reviewed with the patient. She and her have had all of their questions answered. She has been verbally consented for emergency surgery and blood products if they are necessary. I do anticipate cervical ripening.
[2020-06-05 11:44] LABS: HEMATOCRIT 39.5 % (36.0-47.0); HEMOGLOBIN 13.1 g/dl (12.0-15.5); MEAN CORPUSCULAR HEMOGLOBIN 28.9 pg (27.0-33.0); MEAN CORPUSCULAR HGB CONC 33.2 g/dl (32.0-36.5); MEAN CORPUSCULAR VOLUME 87.2 fl (80.0-96.0); PLATELET COUNT, AUTOMATED 180 10^3/uL (150-450); RED BLOOD COUNT 4.53 10^6/uL (4.00-5.40); WHITE BLOOD COUNT 9.1 10^3/uL (4.0-10.0)
[2020-06-05 12:12] VITALS: BP 111/68
[2020-06-05 13:39] VITALS: BP 123/79
[2020-06-05 15:33] VITALS: BP 119/67
[2020-06-05] MEDS ORDERED: OXYTOCIN DRIP 30 UNITS in IV 1 EA IV SCH (20:00)
[2020-06-06] VITALS (32 sets, daily range): BP systolic 91–128; BP diastolic 50–84
--- NOTE | 2020-06-06 10:10 | IPNPDOC ---
Text Note Date of Service The patient was seen on 06/06/20. NOTE Intrapartum Note Sejal is a 34yo with SIUP at 39wk undergoing IOL for AMA. She had IOL started with cytotec and pitocin was started last night. She is painfully contra cting and breathing through them. Vitals wnl, afebrile Cat I FHRT with +accels, -decels, mod jessica Currie: ctx q2min SCE: 350/-2, AROM performed with clear fluid noted, tolerated well Plan: Continue to titrate pitocin per protocol IV pain meds (stadol 2mg q4hr and IV phenergan 12.5mg 1x in latent labor if desired), candidate for epidural in active labor Continue to closely monitor Safe to proceed Kaylie Raymundo MD VS,Jaki, I+O VS, Jaki I+O Laboratory Tests 06/05/20 11:21 Vital Signs Date Time Temp Pulse Resp B/P (MAP) Pulse Ox O2 Delivery O2 Flow Rate FiO2 06/06/20 09:22 80 18 110/76 (87) 06/06/20 07:10 97.9 Kaylie Raymundo MD Jun 06, 2020 10:10
[2020-06-06] MEDS: LR 1,000 ML IV SCH ×2 (10:43→15:20)
[2020-06-06] MEDS ORDERED: FENTANYL 2MCG/ML ROPIVACAINE 0.2% IN 0.9% NACL 100ML IVBAG As Ordered ONE (11:45)
[2020-06-06] MEDS ORDERED: NALOXONE INJ 0.4MG/1ML VIAL (J2310 PER 1MG) IV PRN (13:45)
[2020-06-06] MEDS ORDERED: ePHEDrine SULFATE 25 MG/5 ML(5MG/ML) SYRINGE IV PRN (13:45)
[2020-06-06] MEDS ORDERED: LACTATED RINGER'S 1000 ML IV PRN (13:45)
[2020-06-06] MEDS ORDERED: EPIDURAL/PCA KEYS XX PRN (13:45)
[2020-06-06] MEDS ORDERED: REFRIGERATOR IV KEYS XX PRN (13:45)
[2020-06-06] MEDS ORDERED: diphenhydrAMINE 50MG/ML VIAL (J1200) IV PRN (13:45)
[2020-06-06] MEDS ORDERED: ONDANSETRON 4MG/2ML VIAL IV PRN (13:45)
[2020-06-06] MEDS ORDERED: EPIDURAL COMMENT XX SCH (13:45)
[2020-06-06] MEDS ORDERED: FENTANYL/ROPIVACAINE/NACL BAG 100 ML EPIDURAL SCH (13:45)
[2020-06-06 16:17] LABS: CORD GAS ABE A -9.5; CORD GAS ABE V -3.6; CORD GAS HCO3 A 23.2 MEQ/L; CORD GAS HCO3 V 22.7 MEQ/L; CORD GAS O2 SAT A 29.4 %; CORD GAS O2 SAT V 71.4 %; CORD GAS PCO2 A 85.2 mmHg; CORD GAS PCO2 V 45.2 mmHg; CORD GAS PH A 7.053 UNITS; CORD GAS PH V 7.319 UNITS; CORD GAS PO2 V 31.3 mmHg; CORD GAS SBC A 15.6 MEQ/L; CORD GAS SBC V 20.8 MEQ/L; CORD GAS TCO2 A 25.8 MEQ/L; CORD GAS TCO2 V 24.1 MEQ/L
[2020-06-06] MEDS ORDERED: OXYTOCIN DRIP 30 UNITS in IV 1 EA IV SCH (16:32)
[2020-06-06] MEDS ORDERED: ACETAMINOPHEN 500 MG TAB PO PRN (16:45)
[2020-06-06] MEDS ORDERED: RHOGAM 300 MCG (1500 IU) INJ (J2790) IM SCH (16:45)
[2020-06-06] MEDS ORDERED: ACETAMINOPHEN TAB 650MG DOSE (2X325MG) PO PRN (16:45)
[2020-06-06] MEDS ORDERED: IBUPROFEN 800 MG TAB PO PRN (16:45)
[2020-06-06] MEDS ORDERED: DOCUSATE SODIUM 100MG CAPSULE PO PRN (16:45)
[2020-06-06] MEDS ORDERED: MEASLES,MUMPS,RUBELLA VACCINE INJ (MMR-II) (90707) SC SCH (16:45)
--- NOTE | 2020-06-06 17:55 | DNPDOC ---
[facility] Delivery Note Delivery Note DATE OF DELIVERY: 06/06/2020 PREDELIVERY DIAGNOSIS: 40w1d gestation, induction of labor for AMA POST DELIVERY DIAGNOSIS: Delivered. PROCEDURE: Spontaneous vaginal delivery LOIN TRIMMER: Dr. Kaylie Raymundo MD ANESTHESIA: epidural ESTIMATED BLOOD LOSS: 200 mL. FINDINGS: 8 pound 3 ounce (3720g) male , Score 5/9, nuchal cord times 2 DELIVERY SUMMARY: Sejal is a 34yo [id number] s/p uncomplicated at 40w1d after undergoing IOL for AMA, delivering at 1604 on 06/06. She had IOL started with cytotec and then received pitocin IV. She had AROM, clear and then received an epidural when hadley painfully. She had a FHR decel noted on the monitor, so I went into the room to check her. Bladder castillo bulb was in front of head, so deflated and pushed up behind the head. She had an anterior lip originally, which I pushed back and asked the patient to push down through. With movement of pt onto her side, fetus descended and patient was able to push to delivery of head with just a few sets of pushes. head delivered ESDRAS, two loose nuchal cords reduced. Right anterior shoulder delivered followed by posterior shoulder and corpus. Infant placed on maternal abdomen and initially stunned. Nose and mouth suctioned with bulb suction. Cord clamped x2 and cut, taken to warmer where he then became vigorous- apgars 5/9. Cord gases collected: pHa 7.053 BE -9.5 and pHv 7.319 BE -3.6. With fundal massage and traction on the cord, placenta delivered spontaneously and intact with 3 vessel centrally inserted cord. More uterine massage performed, IV pitocin bolus given, and fundus firmed to u-2cm. Hemostasis noted. Inspection of perineum and vagina revealed small jennyfer at the introitus, 1mll, repaired with 2 figure of 8's using 3-0 vicryl suture with complete reapproximation and hemostasis. All counts correct x2. Mom and infant were doing well when I left the room. MD Zackary Morgan Katrina D MD Jun 06, 2020 17:55
[2020-06-07] MEDS: IBUPROFEN 600MG TAB PO PRN ×3 (01:17→18:40)
[2020-06-07 06:04] VITALS: BP 109/61
--- NOTE | 2020-06-07 07:00 | IPNPDOC ---
Progress Note Date of Service: Jun 07, 2020 Day#: 1 Progress Note PPD 1 SUBJECT: Sejal is a 34yo s/p uncomplicated at 1604 on 06/06 after undergoing IOL at 40w1d for AMA. She is doing well day # 1. She has been ambulating, voiding spontaneously without issue and tolerating regular diet. Breast feeding and formula supplementing without issue. Reports lochia is like a normal period, tapering. No f/c/n/v/CP/SOB. OBJECTIVE: VITAL SIGNS: Within normal limits, afebrile. Alert and oriented times three. Abdomen: Fundus firm at U-2. Soft, NTTP. Extremities: no pain with palpation of calves ASSESSMENT: Sejal is a 34yo s/p uncomplicated at 1604 on 06/06 after undergoing IOL at 40w1d for AMA. She is doing well day # 1. She is doing well day # 1. Vitals within normal limits, afebrile, hemodynamically stable with no evidence of infection. PLAN: 1. Discharge to home today. 2. Tylenol and Motrin for pain. 3. Encourage breast feeding and ambulation. 4. Desires Minipill for contraception 5. Routine PP visit in 6 weeks in clinic. 6. Discussed return precautions at length. Kaylie Raymundo MD VS, I&O, 24H, Jaki Vital Signs/I&O Vital Signs Date Time Temp Pulse Resp B/P (MAP) Pulse Ox O2 Delivery O2 Flow Rate FiO2 06/07/20 06:04 98.4 81 18 109/61 (77) I&O- Last 24 Hours up to 6 AM 06/07/20 06:00 Intake Total 3282 ml Output Total 2225 ml Balance 1057 ml Laboratory Data 24H LABS Laboratory Tests 2 06/06/20 16:12: Cord Arterial Blood pH 7.053, Cord Arterial Blood PCO2 85.2, Cord Arterial Blood PO2 20.0, Cord Arterial Blood HCO3 23.2, Cord Arterial Blood Total CO2 25.8, Cord Arterial Blood Base Excess -9.5, Cord Arterial Base Excess (Standard 15.6, Cord Arterial Bld Oxygen Saturation 29.4, Cord Venous Blood pH 7.319, Cord Venous Blood PCO2 45.2, Cord Venous Blood PO2 31.3, Cord Venous Blood HCO3 22.7, Cord Venous Blood Total CO2 24.1, Cord Venous Base Excess (Actual) -3.6, Cord Venous Base Excess (Standard) 20.8, Cord Venous Blood Oxygen Saturation 71.4 Kaylie Raymundo MD Jun 07, 2020 07:00
[2020-06-07] MEDS ORDERED: DOK1CAP7 PO (07:02)
[2020-06-07] MEDS ORDERED: IBUP80TA PO (07:02)
--- NOTE | 2020-06-07 07:07 | DS.PDOC ---
Discharge Summary General Date of Admission Jun 05, 2020 at 10:06 Date of Discharge Jun 07, 2020 Discharge Summary PROCEDURES PERFORMED DURING STAY: spontaneous vaginal delivery ADMITTING DIAGNOSES: 1. IOL AMA DISCHARGE DIAGNOSES: 1. IOL AMA, delivered COMPLICATIONS/CHIEF COMPLAINT: Induction. HISTORY OF PRESENT ILLNESS/HOSPITAL COURSE: Sejal is a 34yo s/p uncomplicated at 1604 on 06/06 after undergoing IOL at 40w1d for AMA. She is doing well day # 1. She is doing well day # 1. Vitals within normal limits, afebrile, hemodynamically stable with no evidence of infection. DISCHARGE MEDICATIONS: Please see below. ALLERGIES: Please see below. PHYSICAL EXAMINATION ON DISCHARGE: VITAL SIGNS: Within normal limits, afebrile. Alert and oriented times three. Abdomen: Fundus firm at U-2. Soft, NTTP. Extremities: no pain with palpation of calves LABORATORY DATA: Please see below. ACTIVITY: As tolerated, vaginal rest 6 weeks DIET: regular DISPOSITION: home DISCHARGE PLAN/INSTRUCTIONS: 1. Discharge to home today. 2. Tylenol and Motrin for pain. 3. Encourage breast feeding and ambulation. 4. Desires Minipill for contraception 5. Routine PP visit in 6 weeks in clinic. 6. Discussed return precautions at length. DISCHARGE CONDITION: Stable TIME SPENT ON DISCHARGE: Greater than 20 minutes. Kaylie Raymundo MD Vital Signs/I&Os Vital Signs Date Time Temp Pulse Resp B/P (MAP) Pulse Ox O2 Delivery O2 Flow Rate FiO2 06/07/20 06:04 98.4 81 18 109/61 (77) I&O- Last 24 Hours up to 6 AM 06/07/20 06:00 Intake Total 3282 ml Output Total 2225 ml Balance 1057 ml Laboratory Data Labs 24H Laboratory Tests 2 06/06/20 16:12: Cord Arterial Blood pH 7.053, Cord Arterial Blood PCO2 85.2, Cord Arterial Blood PO2 20.0, Cord Arterial Blood HCO3 23.2, Cord Arterial Blood Total CO2 25.8, Cord Arterial Blood Base Excess -9.5, Cord Arterial Base Excess (Standard 15.6, Cord Arterial Bld Oxygen Saturation 29.4, Cord Venous Blood pH 7.319, Cord Venous Blood PCO2 45.2, Cord Venous Blood PO2 31.3, Cord Venous Blood HCO3 22.7, Cord Venous Blood Total CO2 24.1, Cord Venous Base Excess (Actual) -3.6, Cord Venous Base Excess (Standard) 20.8, Cord Venous Blood Oxygen Saturation 71.4 Discharge Medications Scheduled Ascorbic Acid (Vitamin C) 500 Mg Tablet, 2 TAB PO DAILY, (Reported) No.137/Iron/Folic Acd ( Vitamin Tablet) 1 Tab Tab, 1 TAB PO DAILY, (Reported) Scheduled PRN Docusate Sodium (Dok) 100 Mg Capsule, 100 MG PO QHSP PRN for CONSTIPATION Ibuprofen (Ibuprofen) 800 Mg Tablet, 800 MG PO Q8HP PRN for PAIN LEVEL 6-10 Allergies Coded Allergies: No Known Allergies (Unverified , 10/31/18) Kaylie Raymundo MD Jun 07, 2020 07:07
[2020-06-07] MEDS: BENZOCAINE 20% HEMORRHOIDAL OINTMENT 28GM TUBE TOP PRN ×2 (07:41→18:40)
[2020-06-07] MEDS ORDERED: PRENATAL VITAMINS CHEWABLE TABLET PO SCH (09:00)
[2020-06-07 18:00] VITALS: BP 122/77
== END 2020-06-07 18:50 | disposition home or self-care (01) | DRG 560 ==
LOC: M LDI 10:06 → M OBS 06-06 18:30
PROVIDERS: ADMIT Advanced Practice Midwife; ATTEND Obstetrics & Gynecology
PROC: 3E0P7GC Introduction of Other Therapeutic Substance into Female Reproductive, Via Natural or Artificial Opening (ICD-10-PCS; 2020-06-05)
PROC: 10E0XZZ Delivery of Products of Conception, External Approach (ICD-10-PCS; principal; 2020-06-06)
PROC: 0HQ9XZZ Repair Perineum Skin, External Approach (ICD-10-PCS; 2020-06-06)
PROC: 10907ZC Drainage of Amniotic Fluid, Therapeutic from Products of Conception, Via Natural or Artificial Opening (ICD-10-PCS; 2020-06-06)
DX: O69.81X0 Labor and delivery complicated by cord around neck, without compression, not applicable or unspecified (principal); O70.0 First degree perineal laceration during delivery; Z3A.40 40 weeks gestation of pregnancy; Z37.0 Single live birth

== ENCOUNTER → 2020-11-14 | Outpatient (REF) | payer OTHER, BC ==
[~2020-11-14] MED LIST changes: +DOK1CAP7 PO; +IBUP80TA PO
== END ==
LOC: M SFHCWAGY 10:07
PROVIDERS: ATTEND Advanced Practice Midwife
DX: Z12.4 Encounter for screening for malignant neoplasm of cervix (principal)
CPT/HCPCS: 87624; G0123

== ENCOUNTER → 2020-12-20 | Outpatient (CLI) | payer BC, OTHER ==
[2020-12-20 11:00] LABS: ALBUMIN 3.9 GM/DL (3.2-5.2); ALT/SGPT 22 U/L (12-78); BILIRUBIN,TOTAL 0.6 MG/DL (0.2-1.0); BLOOD UREA NITROGEN 21 MG/DL (7-18); CALCIUM LEVEL 8.7 MG/DL (8.5-10.1); CARBON DIOXIDE LEVEL 30 MEQ/L (21-32); CHLORIDE LEVEL 106 MEQ/L (98-107); CHOLESTEROL LEVEL 151 MG/DL (<200); CHOLESTEROL RISK RATIO 2.253 (<5); CREATININE FOR GFR 0.77 MG/DL (0.55-1.30); GLOMERULAR FILTRATION RATE > 60.0 (>60); GLUCOSE, FASTING 79 MG/DL (70-100); HDL CHOLESTEROL 67 MG/DL (>40); LDL CHOLESTEROL 78 MG/DL (<100); NON-HDL-C 84 MG/DL; POTASSIUM SERUM 4.5 MEQ/L (3.5-5.1); SODIUM LEVEL 138 MEQ/L (136-145); TRIGLYCERIDES LEVEL 32 MG/DL (<150)
== END ==
LOC: M WUC 08:09
PROVIDERS: ATTEND Nurse Practitioner Family
DX: Z00.00 Encounter for general adult medical examination without abnormal findings (principal)

== ENCOUNTER → 2021-11-21 | Outpatient (CLI) | payer OTHER ==
[~2021-11-21] MED LIST changes: +DOK1CAP4 PO; -DOK1CAP7 PO
== END ==
LOC: M WHC 11:28
PROVIDERS: ATTEND Advanced Practice Midwife
DX: Z12.31 Encounter for screening mammogram for malignant neoplasm of breast (principal)

== ENCOUNTER → 2021-11-21 | Outpatient (CLI) | payer OTHER ==
[2021-11-21 11:51] LABS: ALT/SGPT 19 U/L (12-78); BILIRUBIN,TOTAL 0.5 MG/DL (0.2-1.0); BLOOD UREA NITROGEN 18 MG/DL (7-18); CALCIUM LEVEL 8.6 MG/DL (8.5-10.1); CARBON DIOXIDE LEVEL 30 MEQ/L (21-32); CHLORIDE LEVEL 105 MEQ/L (98-107); CHOLESTEROL LEVEL 150 MG/DL (<200); CHOLESTEROL RISK RATIO 2.142 (<5); CREATININE FOR GFR 0.72 MG/DL (0.55-1.30); GLOMERULAR FILTRATION RATE > 60.0 (>60); GLUCOSE, FASTING 80 MG/DL (70-100); HDL CHOLESTEROL 70 MG/DL (>40); LDL CHOLESTEROL 71 MG/DL (<100); NON-HDL-C 80 MG/DL; POTASSIUM SERUM 4.4 MEQ/L (3.5-5.1); SODIUM LEVEL 140 MEQ/L (136-145); TRIGLYCERIDES LEVEL 47 MG/DL (<150)
== END ==
LOC: M PLALAB 08:28
PROVIDERS: ATTEND Nurse Practitioner Family
DX: Z00.00 Encounter for general adult medical examination without abnormal findings (principal)

== ENCOUNTER → 2022-01-16 | Outpatient (REF) | payer OTHER | LOC: M SFHCWAGY 10:15 | PROVIDERS: ATTEND Advanced Practice Midwife | DX: R10.2 Pelvic and perineal pain (principal) ==

== ENCOUNTER → 2022-01-16 | Outpatient (REF) | payer OTHER | LOC: M PLALAB 11:33 | PROVIDERS: ATTEND Advanced Practice Midwife | DX: R10.2 Pelvic and perineal pain (principal) ==

== ENCOUNTER → 2022-10-22 | Outpatient (CLI) | payer OTHER ==
[~2022-10-22] MED LIST changes: -DOXY-350 PO; +DOXY-444 PO
[2022-10-22 11:36] LABS: BASO % 0.5 % (0.0-1.0); EOS # 0.1 10^3/uL (0.0-0.5); EOS % 0.8 % (0.0-3.0); HEMATOCRIT 43.9 % (36.0-47.0); LYMPH # 2.7 10^3/uL (1.5-5.0); LYMPH % 44.7 % (24.0-44.0); MEAN CORPUSCULAR HEMOGLOBIN 29.4 pg (27.0-33.0); MEAN CORPUSCULAR HGB CONC 31.9 g/dl (32.0-36.5); MONO # 0.4 10^3/uL (0.0-0.8); MONO % 6.3 % (2.0-8.0); NEUTROPHILS # 2.9 10^3/uL (1.5-8.5); NEUTROPHILS % 47.5 % (36.0-66.0); PLATELET COUNT, AUTOMATED 220 10^3/uL (150-450); RED BLOOD COUNT 4.77 10^6/uL (4.00-5.40); WHITE BLOOD COUNT 6.1 10^3/uL (4.0-10.0)
[2022-10-22 11:48] LABS: ERYTHROCYTE SEDIMENTATION RATE 6 mm/hr (0-20)
[2022-10-22 12:07] LABS: ALBUMIN 4.4 G/DL (3.2-5.2); ALKALINE PHOSPHATASE 40 U/L (46-116); ALT/SGPT 15 U/L (7.0-40); AST/SGOT 17 U/L (<34); BILIRUBIN,TOTAL 0.7 MG/DL (0.3-1.2); BLOOD UREA NITROGEN 11 MG/DL (9-23); C REACTIVE PROTEIN QUANTITATIV < 0.40 MG/DL (<1.0); CALCIUM LEVEL 9.2 MG/DL (8.5-10.1); CARBON DIOXIDE LEVEL 28 MMOL/L (20-31); CHLORIDE LEVEL 105 MMOL/L (98-107); CREATININE FOR GFR 0.73 MG/DL (0.55-1.30); GLOMERULAR FILTRATION RATE > 60.0 (>60); GLUCOSE, FASTING 81 MG/DL (60-100); POTASSIUM SERUM 4.5 MMOL/L (3.5-5.1); SODIUM LEVEL 138 MMOL/L (136-145); TOTAL PROTEIN 7.2 G/DL (5.7-8.2)
[2022-10-22 12:08] LABS: FREE T3 3.3 PG/ML (2.3-4.2); RHEUMATOID FACTOR QUANT < 3.5 IU/ML (<14)
[2022-10-22 12:09] LABS: FREE T4 1.24 NG/DL (0.89-1.76); THYROID STIMULATING HORMONE 1.454 uIU/ML (0.55-4.78)
[2022-10-22 12:11] LABS: THYROID PEROXIDASE ANTIBODY < 28.0 U/ML (<60.0)
[2022-10-23 14:09] LABS: ANTINUCLEAR ANTIBODIES DIRECT Negative (Negative); SJOGREN'S ANTI SS-A <0.2 AI (0.0-0.9); SJOGREN'S ANTI SS-B <0.2 AI (0.0-0.9)
== END ==
LOC: M PLALAB 08:44
PROVIDERS: ATTEND Nurse Practitioner Family
DX: R59.0 Localized enlarged lymph nodes (principal)

== ENCOUNTER → 2022-11-26 | Outpatient (CLI) | payer OTHER ==
[2022-11-26 12:25] LABS: ALBUMIN 4.2 G/DL (3.2-5.2); ALKALINE PHOSPHATASE 43 U/L (46-116); ALT/SGPT 15 U/L (7.0-40); AST/SGOT 12 U/L (<34); BILIRUBIN,TOTAL 0.7 MG/DL (0.3-1.2); BLOOD UREA NITROGEN 13 MG/DL (9-23); CARBON DIOXIDE LEVEL 28 MMOL/L (20-31); CHLORIDE LEVEL 104 MMOL/L (98-107); CHOLESTEROL LEVEL 160 MG/DL (<200); CHOLESTEROL RISK RATIO 2.46 (<5); CREATININE FOR GFR 0.75 MG/DL (0.55-1.30); GLOMERULAR FILTRATION RATE > 60.0 (>60); GLUCOSE, FASTING 81 MG/DL (60-100); HDL CHOLESTEROL 64.8 MG/DL (>40); LDL CHOLESTEROL 83.8 MG/DL (<100); NON-HDL-C 95.2 MG/DL; POTASSIUM SERUM 4.6 MMOL/L (3.5-5.1); SODIUM LEVEL 139 MMOL/L (136-145); TRIGLYCERIDES LEVEL 57 MG/DL (<150)
== END ==
LOC: M PLALAB 08:41
PROVIDERS: ATTEND Nurse Practitioner Family
DX: Z00.00 Encounter for general adult medical examination without abnormal findings (principal)

== ENCOUNTER → 2022-11-26 | Outpatient (CLI) | payer OTHER | LOC: M WHC 10:40 | PROVIDERS: ATTEND Advanced Practice Midwife | DX: Z12.31 Encounter for screening mammogram for malignant neoplasm of breast (principal); Z80.3 Family history of malignant neoplasm of breast ==

== ENCOUNTER → 2023-03-25 | Outpatient (REF) | payer OTHER | LOC: M PLALAB 16:01 | PROVIDERS: ATTEND Advanced Practice Midwife | DX: N76.1 Subacute and chronic vaginitis (principal); R10.2 Pelvic and perineal pain ==

== ENCOUNTER → 2023-04-23 | Outpatient (CLI) | payer OTHER | LOC: M WHC 07:31 | PROVIDERS: ATTEND Advanced Practice Midwife | DX: R10.2 Pelvic and perineal pain (principal); M54.50 Low back pain, unspecified ==

== ENCOUNTER → 2023-12-10 | Outpatient (CLI) | payer OTHER ==
[~2023-12-10] MED LIST changes: +DOXY-440 PO; -DOXY-444 PO; +HYDR-3713 PO; +SUMA25TA3
[2023-12-10 11:16] LABS: BASO % 0.7 % (0.0-1.0); EOS % 0.7 % (0.0-3.0); HEMATOCRIT 41.3 % (36.0-47.0); HEMOGLOBIN 13.7 g/dl (12.0-15.5); LYMPH # 2.2 10^3/uL (1.5-5.0); LYMPH % 37.2 % (24.0-44.0); MEAN CORPUSCULAR HEMOGLOBIN 29.7 pg (27.0-33.0); MEAN CORPUSCULAR HGB CONC 33.2 g/dl (32.0-36.5); MEAN CORPUSCULAR VOLUME 89.4 fl (80.0-96.0); MONO # 0.4 10^3/uL (0.0-0.8); MONO % 6.4 % (2.0-8.0); NEUTROPHILS # 3.3 10^3/uL (1.5-8.5); NEUTROPHILS % 54.8 % (36.0-66.0); PLATELET COUNT, AUTOMATED 208 10^3/uL (150-450); RED BLOOD COUNT 4.62 10^6/uL (4.00-5.40)
[2023-12-10 11:53] LABS: ALBUMIN 3.9 G/DL (3.2-5.2); ALKALINE PHOSPHATASE 40 U/L (46-116); ALT/SGPT 18 U/L (7.0-40); AST/SGOT 15 U/L (<34); BILIRUBIN,TOTAL 0.8 MG/DL (0.3-1.2); BLOOD UREA NITROGEN 13 MG/DL (9-23); CALCIUM LEVEL 9.5 MG/DL (8.5-10.1); CARBON DIOXIDE LEVEL 28 MMOL/L (20-31); CHLORIDE LEVEL 104 MMOL/L (98-107); CHOLESTEROL LEVEL 149 MG/DL (<200); CHOLESTEROL RISK RATIO 2.55 (<5); CREATININE FOR GFR 0.75 MG/DL (0.55-1.30); GLOMERULAR FILTRATION RATE > 60.0 (>60); GLUCOSE, FASTING 85 MG/DL (60-100); HDL CHOLESTEROL 58.3 MG/DL (>40); LDL CHOLESTEROL 82.9 MG/DL (<100); MAGNESIUM LEVEL 1.9 MG/DL (1.8-2.4); NON-HDL-C 90.7 MG/DL; POTASSIUM SERUM 4.2 MMOL/L (3.5-5.1); SODIUM LEVEL 136 MMOL/L (136-145); TOTAL PROTEIN 6.6 G/DL (5.7-8.2); TRIGLYCERIDES LEVEL 39 MG/DL (<150)
[2023-12-10 11:59] LABS: FOLATE > 24.0 NG/ML (>5.4)
[2023-12-10 12:00] LABS: VITAMIN B12 LEVEL 467 PG/ML (211-911)
== END ==
LOC: M PLALAB 07:53
PROVIDERS: ATTEND Nurse Practitioner Family
DX: Z00.00 Encounter for general adult medical examination without abnormal findings (principal); G43.009 Migraine without aura, not intractable, without status migrainosus

== ENCOUNTER 2023-12-12 09:57 | Emergency (ER) | payer OTHER ==
[~2023-12-12] VITALS: Ht 170.2 cm; Wt 60.6 kg
[~2023-12-12 09:57] MED LIST changes: -HYDR-3713 PO; -SUMA25TA3
[2023-12-12] MEDS ORDERED: SUMA25TA3 (10:05)
[2023-12-12] MEDS ORDERED: HYDR-3713 PO (11:47)
[2023-12-12 12:03] VITALS: BP 108/69; TEMP 97.1; O2SAT 95
== END 2023-12-12 12:07 | disposition home or self-care (01) ==
LOC: M ED 09:57
DX: S22.42XA Multiple fractures of ribs, left side, initial encounter for closed fracture (principal); W11.XXXA Fall on and from ladder, initial encounter; Y92.009 Unspecified place in unspecified non-institutional (private) residence as the place of occurrence of the external cause; Y93.89 Activity, other specified; Y99.9 Unspecified external cause status; Z88.0 Allergy status to penicillin; Z79.1 Long term (current) use of non-steroidal anti-inflammatories (NSAID); Z79.899 Other long term (current) drug therapy

== ENCOUNTER → 2024-02-17 | Outpatient (CLI) | payer OTHER ==
[~2024-02-17] MED LIST changes: +HYDR-3713 PO; +SUMA25TA3
== END ==
LOC: M RAD 13:42
PROVIDERS: ATTEND Nurse Practitioner Family
DX: S62.617A Displaced fracture of proximal phalanx of left little finger, initial encounter for closed fracture (principal); Y93.9 Activity, unspecified; Y92.9 Unspecified place or not applicable

== ENCOUNTER → 2024-03-02 | Outpatient (CLI) | payer OTHER | LOC: M SOG 08:34 | PROVIDERS: ATTEND Physician Assistant | DX: M79.645 Pain in left finger(s) (principal); M25.542 Pain in joints of left hand ==

== ENCOUNTER → 2024-03-24 | Outpatient (CLI) | payer OTHER | LOC: M SOG 07:23 | PROVIDERS: ATTEND Physician Assistant | DX: S62.647A Nondisplaced fracture of proximal phalanx of left little finger, initial encounter for closed fracture (principal); M25.542 Pain in joints of left hand ==

== ENCOUNTER → 2024-04-07 | Outpatient (REF) | payer SELFPAY, OTHER | LOC: M SFHCWAGY 14:44 | PROVIDERS: ATTEND Advanced Practice Midwife | DX: Z12.4 Encounter for screening for malignant neoplasm of cervix (principal) | CPT/HCPCS: 87624; G0123 ==

== ENCOUNTER → 2024-04-07 | Outpatient (CLI) | payer OTHER, SELFPAY | LOC: M WHC 10:22 | PROVIDERS: ATTEND Advanced Practice Midwife | DX: Z12.31 Encounter for screening mammogram for malignant neoplasm of breast (principal); R92.333 Mammographic heterogeneous density, bilateral breasts ==

== ENCOUNTER → 2024-07-10 | Outpatient (REF) | payer OTHER ==
[2024-07-11 14:25] LABS: Trichomonas vaginalis (AMP) NOT DETECTED (NEGATIVE)
[2024-07-11 14:48] LABS: GC DNA AMPLIFICATION NEGATIVE (NEGATIVE)
== END ==
LOC: M LAB REF 12:00
PROVIDERS: ATTEND Nurse Practitioner Family
DX: R10.2 Pelvic and perineal pain (principal)

== ENCOUNTER → 2024-08-17 | Outpatient (REF) | payer OTHER | LOC: M SFHCWAGY 10:03 | PROVIDERS: ATTEND Nurse Practitioner Family | DX: N73.9 Female pelvic inflammatory disease, unspecified (principal) ==

== ENCOUNTER → 2025-04-12 | Outpatient (CLI) | payer OTHER ==
[~2025-04-12] MED LIST changes: -IBUP-1022 PO; +IBUP600T42 PO
== END ==
LOC: M WHC 08:12
PROVIDERS: ATTEND Advanced Practice Midwife
DX: Z12.31 Encounter for screening mammogram for malignant neoplasm of breast (principal); R92.333 Mammographic heterogeneous density, bilateral breasts